=== PATIENT | male | born 1965 | race African-American/Black ===

== ENCOUNTER 2023-02-20 15:36 | Emergency (ER) | payer MEDICAID ==
[~2023-02-20] VITALS: Ht 157.5 cm; Wt 68.5 kg
[2023-02-20 15:53] VITALS: BP 119/76; PULSE 90; RESP 20; TEMP 97.6; O2SAT 100
[2023-02-20 17:11] LABS: EOSINOPHILS % 2.7 % (0.0-5.0); HEMATOCRIT. 39.1 % (42.0-52.0); HEMOGLOBIN. 12.5 g/dL (14.0-18.0); LYMPHOCYTES % 22.3 % (20.0-50.0); MEAN CORPUSCULAR HEMOGLOBIN 29.9 pg (28.0-32.0); MEAN CORPUSCULAR VOLUME 93.5 fL (80.0-94.0); MEAN PLATELET VOLUME 7.9 fl (7.4-10.4); PLATELET 261 x1000/uL (130-400); RED BLOOD CELL COUNT 4.18 mill/uL (4.7-6.1); RED CELL DISTRIBUTION WIDTH 15.4 % (11.6-14.6); WHITE BLOOD COUNT 4.5 x1000/uL (4.5-11.0)
[2023-02-20 17:30] LABS: CHLORIDE 107 mEq/L (98-107); INDEX HEMOLYSI 1 (1-3); INDEX ICTERIC 1 (1-4); INDEX LIPEMIC 1 (1-3); POTASSIUM 4.3 mEq/L (3.5-5.1); SODIUM 140 mEq/L (136-145)
[2023-02-20 17:40] LABS: ALANINE AMINOTRANSFERASE 22 IU/L (13-61); ALBUMIN 3.9 g/dL (3.4-5.0); ASPARTATE AMINOTRANSFERASE 27 IU/L (15-37); BILIRUBIN TOTAL 0.5 mg/dL (0.1-1.0); CALCIUM 8.9 mg/dL (8.5-10.1); CARBON DIOXIDE 30 mEq/L (21-32); CREATININE 0.8 mg/dL (0.6-1.3); ETHANOL BLOOD < 10 mg/dL (<10); GLUCOSE 99 mg/dL (70-105); PROTEIN TOTAL 8.2 g/dL (6.0-8.3); UREA NITROGEN BLOOD 20 mg/dL (7-21)
== END 2023-02-21 05:40 | disposition home or self-care (01) ==
LOC: ER 15:36
DX: F19.90 Other psychoactive substance use, unspecified, uncomplicated (principal); Z91.011 Allergy to milk products
CPT/HCPCS: 71045; 80053; 80320; 80329; 85025; 99284; G0480